=== PATIENT | male | born 1960 | race Caucasian/White ===

== ENCOUNTER 2018-06-30 10:37 | Inpatient (IN) | payer OTHER ==
[2018-06-30 13:04] VITALS: BMI 28.1
--- NOTE | 2018-06-30 15:20 | HP ---
CIWA Score - CIWA Score Nausea/Vomitin Muscle Tremors: 2 Anxiety: 2 Agitation: 2 Paroxysmal Sweats: 1-Minimal Palms Moist Orientation: 0-Oriented Tacttile Disturbances: 1-Very Mild Itch/Numbness Auditory Disturbances: 1-Very Mild Visual Disturbances: 0-None Headache: 2-Mild CIWA-Ar Total Score: 13 Admission ROS [facility] - HPI Chief Complaint: i need help to stop drinking alcohol Allergies/Adverse Reactions: Allergies Allergy/AdvReac Type Severity Reaction Status Date / Time No Known Allergies Allergy Verified 06/30/18 14:58 History of Present Illness: this 57 years old male with alcohol dependence,seeking detox,withdrawal symptom, last detox 07/22 in [place] not completed seizure last 04/22 black out hepatitis c not treated fx of left ankle 15 years ago depression last medication 1 year ago longest period of sobriety 18 months Exam Limitations: No Limitations - Ebola screening Have you traveled outside of the country in the last 21 days: No Have you had contact with anyone from an Ebola affected area: No Have you been sick,other than usual withdrawal symptoms: No Do you have a fever: No - Review of Systems Constitutional: Loss of Appetite, Malaise, Night Sweats, Changes in sleep EENT: reports: Tearing, Nose Congestion Respiratory: reports: No Symptoms reported Cardiac: reports: No Symptoms Reported GI: reports: Diarrhea, Nausea, Abdominal cramping : reports: No Symptoms Reported Musculoskeletal: reports: Back Pain, Muscle Pain Integumentary: reports: Dryness Neuro: reports: Tremors Endocrine: reports: No Symptoms Reported Hematology: reports: No Symptoms Reported Psychiatric: reports: No Sypmtoms Reported, Judgement Intact, Mood/Affect Appropiate, Orientated x3, Depressed Patient History - Patient Medical History Hx Anemia: No Hx Asthma: No Hx Chronic Obstructive Pulmonary Disease (COPD): No Hx Cancer: No Hx Cardiac Disorders: No Hx Congestive Heart Failure: No Hx Hypertension: No Hx Hypercholesterolemia: No Hx Pacemaker: No HX Cerebrovascular Accident: No Hx Seizures: No Hx Dementia: No Hx Diabetes: No Hx Gastrointestinal Disorders: No Hx Liver Disease: No Hx Genitourinary Disorders: No Hx Sexually Transmitted Disorders: No Hx Renal Disease (ESRD): No Hx Thyroid Disease: No Hx Human Immunodeficiency Virus (HIV): No (last 03/22 negative) Hx Hepatitis C: Yes (not treated) Hx Depression: Yes (no med) Hx Suicide Attempt: No Hx Bipolar Disorder: No Hx Schizophrenia: No Other Medical History: no suicidal,no homicidal - Patient Surgical History Past Surgical History: Yes Hx Orthopedic Surgery: Yes (left ankle fx ) - PPD History Previous Implant?: Yes Documented Results: Positive w/o proof Implanted On Prior [facility] Admission?: No PPD to be Administered?: No - Smoking Cessation Smoking history: Current every day smoker Have you smoked in the past 12 months: Yes Aproximately how many cigarettes per day: 3 Cigars Per Day: 0 Hx Chewing Tobacco Use: No Initiated information on smoking cessation: Yes 'Breaking Loose' booklet given: 06/30/18 - Substance & Tx. History Hx Alcohol Use: Yes Hx Substance Use: No Substance Use Type: Alcohol Hx Substance Use Treatment: Yes ([place] 07/22 not completed) - Substances Abused Alcohol Route: Oral Frequency: Daily Amount used: 4 pints of Vodka Age of first use: 12 Date of Last Use: 06/30/18 Family Disease History - Family Disease History Family Disease History: Diabetes: Mother (renal failure,chf,), Heart Disease: Father (), Mother, Other: Father Admission Physical Exam S - Vital Signs Vital Signs: Vital Signs - 24 hr 06/30/18 13:02 Temperature 97.1 F L Pulse Rate 88 Respiratory 20 Rate Blood Pressure 130/69 - Physical General Appearance: Yes: Moderate Distress, Tremorous, Irritable, Sweating, Anxious HEENTM: Yes: Normal ENT Inspection, KER[place], Pharynx Normal Respiratory: Yes: Lungs Clear, Normal Breath Sounds, No Respiratory Distress Neck: Yes: Within Normal Limits, Supple, Trachea in good position Breast: Yes: Within Normal Limits Cardiology: Yes: Within Normal Limits, Regular Rhythm, Regular Rate, S1, S2 Abdominal: Yes: Within Normal Limits, Normal Bowel Sounds, Non Tender, Flat, Soft Genitourinary: Yes: Within Normal Limits Back: Yes: Muscle Spasm Musculoskeletal: Yes: Back pain, Muscle Pain Extremities: Yes: Tremors 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, Fully Oriented, Alert, Motor Strength 5/5 Integumentary: Yes: Dry Lymphatic: Yes: Within Normal Limits - Diagnostic (1) Alcohol dependence with uncomplicated withdrawal Current Visit: Yes Status: Acute (2) Alcohol dependence with uncomplicated intoxication Current Visit: Yes Status: Acute (3) Black-out (not amnesia) Current Visit: Yes Status: Acute (4) Nicotine dependence Current Visit: Yes Status: Acute (5) Essential hypertension Current Visit: Yes Status: Acute (6) Hepatitis C Current Visit: Yes Status: Acute (7) Fracture of left ankle Current Visit: Yes Status: Acute Cleared for Admission [facility] - Detox or Rehab [facility] Level of Care: Medically Managed Detox Regimen/Protocol: Librium S Breath Alcohol Content Breath Alcohol Content: 0.136 Urine Drug Screen - Results Drug Screen Negative: No Urine Drug Screen Results: BAR-Barbiturates, BZO-Benzodiazepines
[2018-06-30] MEDS ORDERED: ACETAMINOPHEN 325 MG TABLET (FP) PO PRN (15:35)
[2018-06-30] MEDS ORDERED: IBUPROFEN 400 MG TABLET (FP) PO PRN (15:35)
[2018-06-30] MEDS ORDERED: P-EPHED 60MG/TRIPROLIDI 2.5MG TABLET PO PRN (15:35)
[2018-06-30] MEDS ORDERED: MAGNESIUM HYDROX 2400MG/30ML ORAL SUSPENSION 30 ML CUP PO PRN (15:35)
[2018-06-30] MEDS ORDERED: MAGNESIUM CITRATE 300 ML BOTTLE PO PRN (15:35)
[2018-06-30] MEDS ORDERED: MAG HYDROX/AL HYDROX/SIMETH 30 ML UNIT-DOSE CUP PO PRN (15:35)
[2018-06-30] MEDS ORDERED: MENTHOL/PHENOL 1 EACH UD MM PRN (15:35)
[2018-06-30] MEDS ORDERED: LOPERAMIDE HCL 2 MG CAPSULE PO PRN (15:35)
[2018-06-30] MEDS ORDERED: guaiFENesin/D-METHORPHAN HB 10 ML UNIT-DOSE CUPS PO PRN (15:35)
[2018-06-30] MEDS: chlordiazePOXIDE HCL 25 MG CAPSULE PO SCH ×2 (17:19→22:12)
[2018-06-30 19:25] LABS: URINE APPEARANCE TURBID; URINE COLOR AMBER; URINE GLUCOSE (UA) NEGATIVE (NEGATIVE); URINE KETONE NEGATIVE (NEGATIVE); URINE LEUK ESTERASE NEGATIVE (NEGATIVE); URINE NITRITE NEGATIVE (NEGATIVE); URINE PROTEIN 1+ (NEGATIVE); URINE UROBILINOGEN 4.0 E.U/dl mg/dL (0.2-1.0)
[2018-06-30] MEDS: chlordiazePOXIDE HCL 25 MG CAPSULE PO PRN (19:28)
[2018-06-30 19:47] LABS: URINE MUCUS FEW
[2018-06-30] MEDS: MELATONIN 5 MG TABLETS PO PRN (22:12)
[2018-06-30] MEDS: THIAMINE HCL 100 MG TABLET (FP) PO SCH (22:35)
[2018-07-01] MEDS: chlordiazePOXIDE HCL 25 MG CAPSULE PO SCH ×4 (05:31→22:28)
[2018-07-01] MEDS: chlordiazePOXIDE HCL 25 MG CAPSULE PO PRN (08:40)
[2018-07-01] MEDS: PRENATAL VITAMINS W/ FOLIC ACID TABLET (FP) PO SCH (10:25)
[2018-07-01 10:28] LABS: HEMATOCRIT 38.7 % (35.4-49); MCH 35.3 pg (25.7-33.7); MCHC 33.5 g/dl (32.0-35.9); MEAN CELL VOLUME 105.5 fl (80-96); MEAN PLT VOLUME 9.9 fl (7.5-11.1); PLATELET COUNT 64 K/MM3 (134-434); RBC 3.67 M/mm3 (4.00-5.60); RDW 16.9 % (11.9-15.9); WHITE BLOOD COUNT 5.9 K/mm3 (4.0-10.0)
[2018-07-01 11:09] LABS: ALBUMIN 2.6 g/dl (3.4-5.0); ALK PHOS 145 U/L (45-117); ANION GAP 10 MMOL/L (8-16); BILIRUBIN,TOTAL 1.7 mg/dL (0.2-1); BLOOD UREA NITROGEN 13 mg/dL (7-18); CALCIUM 7.8 mg/dL (8.5-10.1); CHLORIDE 103 mmol/L (98-107); CO2 25 mmol/L (21-32); CREATININE 0.5 mg/dL (0.55-1.3); GLUCOSE,RANDOM 113 mg/dL (74-106); POTASSIUM 3.4 mmol/L (3.5-5.1); SGOT/AST 193 U/L (15-37); SGPT/ALT 56 U/L (13-61); SODIUM 138 mmol/L (136-145)
--- NOTE | 2018-07-01 14:46 | EKG ---
Test Reason : Blood Pressure : / mmHG Vent. Rate : 084 BPM Atrial Rate : 084 BPM P-R Int : 120 ms QRS Dur : 102 ms QT Int : 378 ms P-R-T Axes : 016 -26 017 degrees QTc Int : 446 ms NORMAL SINUS RHYTHM MINIMAL VOLTAGE CRITERIA FOR LVH, MAY BE NORMAL VARIANT BORDERLINE ECG NO PREVIOUS ECGS AVAILABLE Confirmed by MD Shlomo, Reece ([id number]) on 07/01/2018 2:46:47 PM Referred By: Confirmed By:Reece Keenan MD
--- NOTE | 2018-07-01 16:15 | PN ---
[facility] CIWA - CIWA Score Nausea/Vomitin-No Nausea/No Vomiting Muscle Tremors: 2 Anxiety: 2 Agitation: 3 Paroxysmal Sweats: 2 Orientation: 0-Oriented Tacttile Disturbances: 1-Very Mild Itch/Numbness Auditory Disturbances: 0-None Visual Disturbances: 1-Very Mild Sensitivity Headache: 0-None Present CIWA-Ar Total Score: 11 S Progress Note (SOAP) Subjective: interrupted sleep, anxious Objective: 07/01/18 16:14 Vital Signs Temperature 96.6 F L 07/01/18 13:56 Pulse Rate 106 H 07/01/18 13:56 Respiratory Rate 20 07/01/18 13:56 Blood Pressure 128/89 07/01/18 13:56 O2 Sat by Pulse Oximetry (%) Laboratory Last Values WBC 5.9 K/mm3 (4.0-10.0) 07/01/18 08:00 RBC 3.67 M/mm3 (4.00-5.60) L 07/01/18 08:00 Hgb 13.0 GM/dL (11.7-16.9) 07/01/18 08:00 Hct 38.7 % (35.4-49) 07/01/18 08:00 MCV 105.5 fl (80-96) H 07/01/18 08:00 MCH 35.3 pg (25.7-33.7) H 07/01/18 08:00 MCHC 33.5 g/dl (32.0-35.9) 07/01/18 08:00 RDW 16.9 % (11.9-15.9) H 07/01/18 08:00 Plt Count 64 K/MM3 (134-434) L 07/01/18 08:00 MPV 9.9 fl (7.5-11.1) 07/01/18 08:00 Sodium 138 mmol/L (136-145) 07/01/18 08:00 Potassium 3.4 mmol/L (3.5-5.1) L 07/01/18 08:00 Chloride 103 mmol/L (98-107) 07/01/18 08:00 Carbon Dioxide 25 mmol/L (21-32) 07/01/18 08:00 Anion Gap 10 MMOL/L (8-16) 07/01/18 08:00 BUN 13 mg/dL (7-18) 07/01/18 08:00 Creatinine 0.5 mg/dL (0.55-1.3) L 07/01/18 08:00 Creat Clearance w eGFR > 60 (>60) 07/01/18 08:00 Random Glucose 113 mg/dL (74-106) H 07/01/18 08:00 Calcium 7.8 mg/dL (8.5-10.1) L 07/01/18 08:00 Total Bilirubin 1.7 mg/dL (0.2-1) H 07/01/18 08:00 AST 193 U/L (15-37) H 07/01/18 08:00 ALT 56 U/L (13-61) 07/01/18 08:00 Alkaline Phosphatase 145 U/L (45-117) H 07/01/18 08:00 Total Protein 7.0 g/dl (6.4-8.2) 07/01/18 08:00 Albumin 2.6 g/dl (3.4-5.0) L 07/01/18 08:00 Urine Color Rosa 06/30/18 16: Urine Appearance Turbid 06/30/18 16: Urine pH 5.0 (5.0-8.0) 06/30/18 16: Ur Specific [place] 1.029 (1.010-1.035) 06/30/18 16: Urine Protein 1+ (NEGATIVE) H 06/30/18 16:27 Urine Glucose (UA) Negative (NEGATIVE) 06/30/18 16: Urine Ketones Negative (NEGATIVE) 06/30/18: Urine Blood Negative (NEGATIVE) 06/30/18: Urine Nitrite Negative (NEGATIVE) 06/30/18 16: Urine Bilirubin 2.0 (<2.0 mg/dL) 06/30/18 16: Urine Urobilinogen 4.0 e.u/dl mg/dL (0.2-1.0) 06/30/18 16: Ur Leukocyte Esterase Negative (NEGATIVE) 06/30/18 16:27 Urine WBC (Auto) None /hpf (3-5) 06/30/18 16: Urine RBC (Auto) 3 /hpf (0-3) 06/30/18 16: Urine Mucus Few 06/30/18 16:27 RPR Titer Nonreactive (NONREACTIVE) 07/01/18 08:00 Aox3 no distress no adventitious breath sounds full ROM ambulating independently in the unit Assessment: 07/01/18 16:14 withdrawal sx Plan: elevated AST: d/c acetaminophen, repeat cmp, and ammonia increase fluids continue detox continue to monitor
[2018-07-01] MEDS: MELATONIN 5 MG TABLETS PO PRN (22:28)
[2018-07-01] MEDS: THIAMINE HCL 100 MG TABLET (FP) PO SCH (22:28)
[2018-07-02] MEDS: chlordiazePOXIDE HCL 25 MG CAPSULE PO SCH ×2 (05:30→10:25)
[2018-07-02] MEDS: chlordiazePOXIDE HCL 25 MG CAPSULE PO PRN (07:56)
[2018-07-02] MEDS: hydrOXYzine PAMOATE 50 MG CAPSULE (FP) PO PRN ×2 (07:56→15:01)
[2018-07-02] MEDS: PRENATAL VITAMINS W/ FOLIC ACID TABLET (FP) PO SCH (10:25)
[2018-07-02 10:49] LABS: ALBUMIN 2.4 g/dl (3.4-5.0); ALK PHOS 131 U/L (45-117); ANION GAP 10 MMOL/L (8-16); BILIRUBIN,TOTAL 2.2 mg/dL (0.2-1); BLOOD UREA NITROGEN 12 mg/dL (7-18); CHLORIDE 102 mmol/L (98-107); CO2 26 mmol/L (21-32); CREATININE 0.6 mg/dL (0.55-1.3); GLUCOSE,RANDOM 130 mg/dL (74-106); POTASSIUM 3.4 mmol/L (3.5-5.1); SGOT/AST 132 U/L (15-37); SGPT/ALT 44 U/L (13-61); SODIUM 138 mmol/L (136-145); TOT PROT 6.7 g/dl (6.4-8.2)
--- NOTE | 2018-07-02 14:38 | PN ---
S CIWA - CIWA Score Nausea/Vomitin Muscle Tremors: 3 Anxiety: 3 Agitation: 3 Paroxysmal Sweats: 3 Orientation: 0-Oriented Tacttile Disturbances: 0-None Auditory Disturbances: 0-None Visual Disturbances: 0-None Headache: 0-None Present CIWA-Ar Total Score: 14 S Progress Note (SOAP) Subjective: Tremor, anxious, sweating Objective: 07/02/18 14:33 Last Vital Signs Temp Pulse Resp BP Pulse Ox 97.7 F 105 H 18 126/86 07/02/18 14:07 07/02/18 14:07 07/02/18 14:07 07/02/18 14:07 Laboratory Tests 06/30/18 07/01/18 07/01/18 16:27 08:00 08:00 WBC 5.9 RBC 3.67 L Hgb 13.0 Hct 38.7 MCV 105.5 H MCH 35.3 H MCHC 33.5 RDW 16.9 H Plt Count 64 L MPV 9.9 Sodium 138 Potassium 3.4 L Chloride 103 Carbon Dioxide 25 Anion Gap 10 BUN 13 Creatinine 0.5 L Creat Clearance w eGFR > 60 Random Glucose 113 H Calcium 7.8 L Total Bilirubin 1.7 H AST 193 H ALT 56 Alkaline Phosphatase 145 H Ammonia Total Protein 7.0 Albumin 2.6 L Urine Color Rosa Urine Appearance Turbid Urine pH 5.0 Ur Specific [place] 1.029 Urine Protein 1+ H Urine Glucose (UA) Negative Urine Ketones Negative Urine Blood Negative Urine Nitrite Negative Urine Bilirubin 2.0 Urine Urobilinogen 4.0 e.u/dl Ur Leukocyte Esterase Negative Urine WBC (Auto) None Urine RBC (Auto) 3 Urine Mucus Few RPR Titer 07/01/18 07/02/18 07/02/18 08:00 07:35 08:00 WBC RBC Hgb Hct MCV MCH MCHC RDW Plt Count MPV Sodium 138 Potassium 3.4 L Chloride 102 Carbon Dioxide 26 Anion Gap 10 BUN 12 Creatinine 0.6 Creat Clearance w eGFR > 60 Random Glucose 130 H Calcium 8.0 L Total Bilirubin 2.2 H AST 132 H ALT 44 Alkaline Phosphatase 131 H Ammonia 65.54 H Total Protein 6.7 Albumin 2.4 L Urine Color Urine Appearance Urine pH Ur Specific [place] Urine Protein Urine Glucose (UA) Urine Ketones Urine Blood Urine Nitrite Urine Bilirubin Urine Urobilinogen Ur Leukocyte Esterase Urine WBC (Auto) Urine RBC (Auto) Urine Mucus RPR Titer Nonreactive Labs reviewed: K 3.4, glucose 130 and 113, ammonia level 65.54, elevated LFTs; UA abnormal Assessment: 07/02/18 14:38 Withdrawal symptoms Noted with hyperglycemia, hyperammonemia, hypokalemia and elevated LFTs and abnormal UA Plan: Continue detox Hyperglycemia: encouraged to drink more water and avoid sugary intake, follow up with PCP for monitoring Hyperammonemia: lactulose 20gm PO BID Hypokalemia: K Dur 40 Meq PO x 1 dose Elevated LFTs: most likely due to hepatitis C, follow up with PCP for monitoring Abnormal UA: repeat UA
[2018-07-02] MEDS ORDERED: POTASSIUM CHLORIDE TABS 20 MEQ TABLET.ER (FP) PO ONE (14:47)
[2018-07-02] MEDS: LACTULOSE 20 GM/30 ML UDC (FOR ORAL USE ONLY) PO SCH ×2 (15:03→22:26)
[2018-07-02] MEDS: chlordiazePOXIDE 5 MG CAPSULE PO SCH ×2 (17:03→22:26)
[2018-07-02] MEDS: THIAMINE HCL 100 MG TABLET (FP) PO SCH (22:26)
[2018-07-02] MEDS: MELATONIN 5 MG TABLETS PO PRN (22:27)
[2018-07-03] MEDS: chlordiazePOXIDE 5 MG CAPSULE PO SCH ×2 (05:46→10:36)
[2018-07-03] MEDS: PRENATAL VITAMINS W/ FOLIC ACID TABLET (FP) PO SCH (10:36)
[2018-07-03] MEDS: LACTULOSE 20 GM/30 ML UDC (FOR ORAL USE ONLY) PO SCH ×2 (10:36→22:15)
[2018-07-03 14:33] LABS: URINE APPEARANCE CLEAR; URINE BILIRUBIN NEGATIVE (<2.0 mg/dL); URINE COLOR DKYELLOW; URINE GLUCOSE (UA) NEGATIVE (NEGATIVE); URINE KETONE NEGATIVE (NEGATIVE); URINE LEUK ESTERASE NEGATIVE (NEGATIVE); URINE NITRITE NEGATIVE (NEGATIVE); URINE PROTEIN NEGATIVE (NEGATIVE)
--- NOTE | 2018-07-03 16:27 | PN ---
[facility] Progress Note (SOAP) Subjective: dry heaves tremors interrupted sleep Objective: 07/03/18 16:26 in bed A & O x 3 No acute distress noted Assessment: 07/03/18 16:27 Withdrawal sx Plan: continue detox
[2018-07-03] MEDS: chlordiazePOXIDE HCL 10 MG CAPSULE PO SCH ×2 (17:42→22:14)
[2018-07-03] MEDS: MELATONIN 5 MG TABLETS PO PRN (22:14)
[2018-07-03] MEDS: THIAMINE HCL 100 MG TABLET (FP) PO SCH (22:14)
[2018-07-04] MEDS: chlordiazePOXIDE HCL 10 MG CAPSULE PO SCH (05:22)
[2018-07-04 06:07] VITALS: BP 117/82; PULSE 94; TEMP 97.6
--- NOTE | 2018-07-04 11:14 | DS ---
[facility] Detox Discharge Summary Admission Date: 06/30/18 Discharge Date: 07/04/18 - History Present History: Alcohol Dependence - Physical Exam Results Vital Signs: Vital Signs Temperature 97.6 F 07/04/18 06:07 Pulse Rate 94 H 07/04/18 06:07 Respiratory Rate 18 07/04/18 06:30 Blood Pressure 117/82 07/04/18 06:07 O2 Sat by Pulse Oximetry (%) Pertinent Admission Physical Exam Findings: PATIENT COMPLETED DETOX REGIMEN WITHOUT ADVERSE EVENT. PATIENT ALERT AND ORIENTED X 3, SKIN WARM AND DRY, AMB AD PRICILLA, DENIES SI/HI. PATIENT HAS SPONSOR AND PCP AT [facility] AND STATES HE IS GOING TO APPOINTMENT TODAY ONCE DISCHARGED. PATIENT EDUCATED REGARDING LAB VALUES AND MEDICALLY IMPORTANCE OF FOLLOWING UP WITH PCP FOR ONGOING TREATMENT AND EVALUATION TODAY. PATIENT ENCOURAGED TO CONTINUE WITH GROUP MEETINGS AND SPONSORSHIP TO PREVENT RELAPSE. PATIENT EDUCATED TO GO TO ER IF WITHDRAWAL SX AND/OR CONFUSION OCCURS. D/C PAPERS PROVIDED TO PATIENT BY STAFF. - Treatment Hospital Course: Detox Protocol Followed, Detoxed Safely, Responded well, Discharged Condition Good, Rehab Referral Accepted Patient has Accepted a Rehab Referral to: [facility] - Medication Discharge Medications: Ambulatory Orders NK [No Known Home Medication] 06/30/18 - AMA Did Patient Leave Against Medical Advice: No
== END 2018-07-04 09:18 | disposition home or self-care (01) | DRG 775 ==
LOC: YASAS 10:37 → Y3N 15:24
PROC: HZ2ZZZZ Detoxification Services for Substance Abuse Treatment (ICD-10-PCS; principal; 2018-06-30)
DX: F10.230 Alcohol dependence with withdrawal, uncomplicated (principal); F17.210 Nicotine dependence, cigarettes, uncomplicated; F32.9 Major depressive disorder, single episode, unspecified; I10 Essential (primary) hypertension; E87.6 Hypokalemia; E72.20 Disorder of urea cycle metabolism, unspecified; R55 Syncope and collapse; R94.5 Abnormal results of liver function studies; R82.90 Unspecified abnormal findings in urine; R76.11 Nonspecific reaction to tuberculin skin test without active tuberculosis; B18.2 Chronic viral hepatitis C; R73.9 Hyperglycemia, unspecified; Z87.81 Personal history of (healed) traumatic fracture
CPT/HCPCS: 36415; 71046-TC-FY; 80053; 81003; 81015; 82140; 85027; 86593; 93005; 93010